=== PATIENT | male | born 1950 | race African-American/Black ===

== ENCOUNTER 2018-03-22 06:24 | Day surgery (SDC) | payer MEDICARE ==
[2018-03-21 12:46] VITALS: BMI 33.0
--- NOTE | 2018-03-22 02:29 | HP ---
SHORT STAY HISTORY AND PHYSICAL DATE OF ADMISSION: 03/22/2018 HISTORY OF PRESENT ILLNESS: This is a 67-year-old male who comes for a colonoscopy for followup of c olon polyp. The patient at the present time has no specific GI symptoms. Bowel movements are regula r. No history of abdominal pain or rectal bleeding. He had a colonoscopy with polypectomy in 2013. He had two large sessile adenomas removed at that time. He was advised to come back for a colonosco py in 3 years' time because of the previous polypectomy. ALLERGIES: None. SOCIAL HISTORY: The patient is a former smoker. He drinks alcohol socially. MEDICAL ILLNESSES: 1. Hypertension. 2. Hyperlipidemia. 3. Diabetes. 4. Colon polyp. 5. Umbilical hernia repair. 6. Fracture, left fibula in 2012. PHYSICAL EXAMINATION: VITAL SIGNS: Pulse is 70, blood pressure 130/70. HEENT: Conjunctivae clear. CARDIOVASCULAR SYSTEM AND LUNGS: Within normal limits. ABDOMEN: Soft to palpate. No organomegaly. No tenderness. No masses. Bowel sounds normal. ADMITTING DIAGNOSIS: A 67-year-old male with previous colonoscopy and polypectomy. PLAN: Repeat colonoscopy.
--- NOTE | 2018-03-22 08:49 | OP ---
DATE OF PROCEDURE: 03/22/2018 SURGEON: Екатерина Espino M.D. OPERATIVE PROCEDURE: Colonoscopy with polypectomy, colonoscopy with 10 Vietnamese heater probe therapy o f polypectomy site. PREOPERATIVE DIAGNOSIS: Colon polyp. POSTOPERATIVE DIAGNOSES: 1. Sessile polyps x2 ascending colon. 2. Sessile polyp transverse colon. 3. Mild sigmoid diverticular disease. 4. Hemorrhoids. PROCEDURE NOTE: The patient was placed on his left lateral position and was given sedation by Anesth esia Department. A rectal exam was done before the scope was advanced into the rectum. No other les ion felt on rectal exam. A Pentax video colonoscope was introduced into the rectum and advanced all the way into the cecum. The prep was good. The mucosa appears normal. The appendiceal orifice and ileocecal valve was ____. The patient had 2 sessile polyps over the ascending colon. Both removed w ith snare cautery. The polypectomy site did not cauterize very well. There is no bleeding seen, but really cauterize the polypectomy site with a 10 Vietnamese heater probe. The hepatic flexure, no pathol ogy seen. A sessile transverse colon polyp removed with snare and cautery with good hemostasis. The splenic flexure, descending colon, no pathology seen. The sigmoid colon showed scattered diverticul osis, mild. Rectum shows hemorrhoids. DISCHARGE PLANNING: This is a 67-year-old male who came for a colonoscopy because o f previous colonoscopy and polypectomy. He underwent colonoscopy with polypectomy. DISCHARGE RECOMMENDATIONS: 1. The patient was advised to call me if he develops abdominal pain, hematochezia. 2. In the absence of any of these symptoms he is to come back to me in 2 weeks. 3. Repeat colonoscopy in 3 years.
[2018-03-22] MEDS ORDERED: Lidocaine 1% PF 5 ML VIAL ONE (09:46)
[2018-03-22] MEDS ORDERED: PROPOFOL 200 MG/20 ML VIAL ONE (09:46)
== END 2018-03-22 08:35 | disposition home or self-care (01) ==
LOC: SDC 06:24
PROVIDERS: ATTEND Internal Medicine Gastroenterology
PROC: 0DBK8ZX Excision of Ascending Colon, Via Natural or Artificial Opening Endoscopic, Diagnostic (ICD-10-PCS; principal; 2018-03-22)
PROC: 0DBL8ZX Excision of Transverse Colon, Via Natural or Artificial Opening Endoscopic, Diagnostic (ICD-10-PCS; 2018-03-22)
DX: Z12.11 Encounter for screening for malignant neoplasm of colon (principal); D12.3 Benign neoplasm of transverse colon; K63.5 Polyp of colon; K57.30 Diverticulosis of large intestine without perforation or abscess without bleeding; K64.9 Unspecified hemorrhoids; E78.5 Hyperlipidemia, unspecified; E11.9 Type 2 diabetes mellitus without complications; Z87.891 Personal history of nicotine dependence; Z86.010 Personal history of colon polyps; Z79.82 Long term (current) use of aspirin; Z79.84 Long term (current) use of oral hypoglycemic drugs; Z79.899 Other long term (current) drug therapy; Z98.890 Other specified postprocedural states
CPT/HCPCS: 88305; J2001; J2704